=== PATIENT | male | born 1955 | race Caucasian/White ===

== ENCOUNTER → 2021-03-24 08:48 | Outpatient (CLI) | payer BC, SELFPAY ==
[2021-03-24 22:38] LABS: COVID19 - ORCAS (NP or Nasal) Negative (Negative)
== END ==
PROVIDERS: Visit Provider Family Medicine
DX: U07.1 COVID-19 (principal)
CPT/HCPCS: U0003

== ENCOUNTER → 2022-06-18 08:53 | Outpatient (CLI) | payer BC, SELFPAY ==
[2022-06-18 09:55] LABS: Hematocrit 43.2 % (41-53); Hemoglobin 14.9 g/dL (13.5-17.5); Mean Corpuscular HGB Conc 34.5 % (30-36); Mean Corpuscular Hemoglobin 31.9 PG (26-34); Mean Corpuscular Volume 92.4 fL (80-100); Platelet Count 200 X10^3/uL (150-400); Red Blood Cell Count 4.68 X10^6/uL (4.5-5.9); Red Cell Distribution Width 12.5 % (11.6-14.8); White Blood Cell Count 8.4 X10^3/uL (4.5-11.0)
[2022-06-18 10:15] LABS: HEMOLYSIS < 15 (0-50)
[2022-06-18 10:26] LABS: Alanine Aminotransferase 47 IU/L (<50); Albumin 4.5 g/dL (3.5-5.0); Albumin Globulin Ratio 1.4 (1.0-2.8); Alkaline Phosphatase 79 U/L (38-126); Aspartate Aminotransferase 33 IU/L (17-59); BUN Creatinine Ratio 24.7 (6-22); Bilirubin Total 0.9 mg/dL (0.2-1.3); Blood Urea Nitrogen 19 mg/dL (9-20); C-Reactive Protein Quant 0.8 mg/dL (<1.0); Calcium 9.4 mg/dL (8.4-10.2); Carbon Dioxide 30 mmol/L (22-32); Chloride 100 mmol/L (98-107); Cholesterol 182 mg/dL (140-199); Estimated Glomerular Filt Rate > 60 mL/min (>60); Globulin 3.2 g/dL (1.7-4.1); Glucose 106 mg/dL (80-110); HDL Cholesterol 66 mg/dL (40-60); LDL Cholesterol Calculated 99 mg/dL (<100); Potassium 4.6 mmol/L (3.4-5.1); Sodium 137 mmol/L (137-145); Total Protein 7.7 g/dL (6.3-8.2); Triglycerides 87 mg/dL (35-150)
[2022-06-18 10:50] LABS: Thyroid Stimulating Hormone 4.98 uIU/mL (0.47-4.68)
[2022-06-18 11:27] LABS: Folate 10.5 ng/mL (2.76-20.0); Vitamin B12 439 pg/mL (239-931)
[2022-06-19 10:11] LABS: Prostate Specific Antigen 3.17 ng/mL (0.10-4.00)
== END ==
PROVIDERS: Referring Provider Internal Medicine; Visit Provider Internal Medicine
DX: Z00.00 Encounter for general adult medical examination without abnormal findings (principal); E03.9 Hypothyroidism, unspecified; R00.2 Palpitations; I10 Essential (primary) hypertension
CPT/HCPCS: 36415; 80053; 80061; 82607; 82746; 84153; 84443; 85027; 86140